=== PATIENT | female | born 1970 | race African-American/Black ===

== ENCOUNTER 2018-08-09 16:16 | Inpatient (IN) | payer OTHER, SELFPAY ==
--- NOTE | 2018-08-09 16:45 | RAD ---
Exam: Chest one view HISTORY:Chest pain Comparison: 12/05/2016 FINDINGS: Lungs: No masses or consolidation. Cardiac silhouette:Persistent enlargement Pulmonary vessels: Prominent pulmonary vasculature, similar appearing Pleural Spaces: Clear Pneumothorax: None Osseous abnormalities: None of acuity. IMPRESSION: Enlarged cardiac silhouette and pulmonary vasculature, redemonstrated. Correlate clinical ly
[2018-08-09 16:54] LABS: #Eosinphils 0.1 thou/uL (0.0-0.7); #Monocytes 0.6 thou/uL (0.11-0.59); #Neutrophils 8.7 thou/uL (1.40-6.50); %Basophils 0.4 % (0.0-1.0); %Eosinophils 0.5 % (0.0-10.0); %Lymphocytes 24.3 % (21.0-51.0); %Monocytes 5.1 % (0.0-10.0); %Neutrophils 69.7 % (42.0-75.0); Hemoglobin 13.5 g/dL (12.0-16.0); Mean Corpuscular Hemoglobin 24.6 pg (27.0-31.0); Mean Corpuscular Volume 84.8 fL (78.0-98.0); Mean Platelet Volume 7.5 fL (7.4-10.4); Platelet Count 431 thou/uL (130-400); Red Blood Cell (RBC) Count 5.46 mill/uL (4.20-5.40); White Blood Cell (WBC) Count 12.5 thou/uL (4.8-10.8)
[2018-08-09 17:21] LABS: ALT (SGPT) 35 U/L (8-55); AST (SGOT) 27 U/L (5-34); Albumin 3.6 g/dL (3.5-5.0); Alkaline Phosphatase 107 U/L (40-150); Anion Gap 15 mmol/L (10-20); BUN (Urea Nitrogen) 8 mg/dL (7.0-18.7); Bilirubin, Total 0.4 mg/dL (0.2-1.2); CK (CPK) 106 U/L (29-168); Calc. Creatinine Clearance 0 mL/min (70-130); Calcium 9.3 mg/dL (7.8-10.44); Carbon Dioxide 26 mmol/L (22-29); Chloride 102 mmol/L (98-107); Estimated GFR-MDRD 72; Globulin 3.8 g/dL (2.4-3.5); Glucose 128 mg/dL (70-105); Potassium 3.7 mmol/L (3.5-5.1); Protein, Total 7.4 g/dL (6.0-8.3); Sodium 139 mmol/L (136-145)
[2018-08-09 17:47] LABS: CKMB 1.1 ng/mL (0-6.6)
[2018-08-09] MEDS ORDERED: Furosemide 40 MG/4 ML VIAL ONE (19:21)
[2018-08-09] MEDS ORDERED: Enoxaparin Sodium 100 MG/ML SYRINGE ONE (19:21)
[2018-08-09] MEDS ORDERED: Enoxaparin Sodium 80 MG/0.8 ML SYRINGE ONE (19:21)
[2018-08-09 20:13] LABS: Troponin I 0.064 ng/mL (< 0.028)
[2018-08-09] MEDS: Furosemide 40 MG/4 ML VIAL SLOW IVP SCH (21:48)
[2018-08-09 22:01] VITALS: BMI 64.2
[2018-08-09] MEDS ORDERED: Dextrose 5% in Water 1,000 ML IV PRN (22:29)
[2018-08-09] MEDS ORDERED: Dextrose 50% Abboject 50 ML SYRINGE IVP PRN (22:29)
[2018-08-09] MEDS: HumaLOG 300 UNITS/3 ML VIAL SC PRN (23:26)
--- NOTE | 2018-08-10 02:05 | HP ---
CHIEF COMPLAINT: Shortness of breath. HISTORY OF PRESENT ILLNESS: This patient is a 47-year-old female with a history of severe cardiomyopathy with an ejection fraction of 10% to 15%. The patient was last admitted anywhere which was here in 2015. At that time, her EF was 10% to 15%. She had some evidence of decompensated failure and respiratory failure. The patient was discharged and reports that she had been following up at [facility], but recently changed to Dr. Jiménez in April. She was trying to get fully worked up again at that time, but her Medicaid was discontinued at the end of April, so she has not had significant followup. She is also struggling to maintain adequate amounts of her medication. She has been spacing her medications out in order to try to make them last longer. She has only been using her Lasix a couple of times a week. She presented today with worsening shortness of breath, orthopnea, peripheral edema, and pressure in her chest has been intermittent since April, but became worse over the last several days. She denies any sharp pain. REVIEW OF SYSTEMS: She reports that she is having some problems with her bones and when asked to be more specific, she says they feel like they are "dry" and/or popping a lot. Other than that all systems were reviewed, pertinent positives and negatives noted in the history of present illness. PAST MEDICAL HISTORY: Significant for the above mentioned cardiomyopathy with EF of 10% to 15% She has been reluctant to consider LifeVest and has not had a defibrillator accomplished yet. She has hypertension, diabetes, morbid obesity, history of PCP drug abuse and tobacco use, dyslipidemia, pulmonary embolus, and DVT. PAST SURGICAL HISTORY: History of bilateral vocal cord lesion biopsy, benign laparoscopic cholecystectomy, I and D of abdominal wall abscess. FAMILY HISTORY: Myocardial infarction both parents. SOCIAL HISTORY: The patient quit smoking about 5 years ago. She smoked a pack a day prior to that time. Denies alcohol or drugs. She is full code. Her sister, Carlie, would be her surrogate decision maker should that become necessary. ALLERGIES: IBUPROFEN AND MORPHINE. CURRENT MEDICATIONS: 1. Coreg 25 mg b.i.d. 2. Lasix 40 mg b.i.d. 3. Pravastatin 20 mg daily. 4. Aldactone 25 mg b.i.d. 5. Nexium 40 mg daily. 6. Lisinopril 40 mg daily. 7. Metformin 500 mg b.i.d. 8. NovoLog insulin b.i.d. PHYSICAL EXAMINATION: VITAL SIGNS: Temperature 98.5, pulse 98, respirations 16, O2 saturation 94% on 2 L nasal cannula, BP 146/68. GENERAL APPEARANCE: Morbidly obese, age-appropriate female, in no distress. She is awake, alert, sitting up in chair. HEENT: PERRL. No OP lesions. NECK: Supple and symmetric. Cannot determine if there is JVD due to her habitus. HEART: Regular, but again difficult to auscultate because of her morbid obesity. LUNGS: Clear with possibly some very minimal basilar rales, but generally fair air exchange. ABDOMEN: Obese, soft, nontender, and nondistended. Positive bowel sounds. No masses. No organomegaly. EXTREMITIES: Have 2 to 3+ pitting edema up to the level of the knee bilaterally. Pulses are diminished because of the edema. NEUROLOGIC: She is intact. Moves all extremities spontaneously. Has no focal deficits. PSYCH: Normal affect and behavior. LABORATORY DATA: White count 12.5, hemoglobin 13.5, platelets 431. Sodium 139, potassium 3.7, chloride 102, CO2 is 25, BUN 8, creatinine 0.99, glucose 128, calcium 9.3, AST is 27, ALT is 35, alkaline phosphatase 107. Troponin 0.047, subsequent 0.064. BNP 588.5. Chest x-ray shows cardiomegaly with prominent pulmonary vasculature. IMPRESSION AND PLAN: 1. Decompensated congestive heart failure. The patient with a severe cardiomyopathy. She has not been able to take her medications routinely because of lack of resources. She will receive IV Lasix and continue with her Aldactone medications. 2. Cardiomyopathy. Continue with the beta laly, BRITTANY inhibitor, and diuretics. 3. Elevated troponin likely secondary to the decompensated heart failure, representing a type 2 [id number] myocardial infarction secondary to demand ischemia. 4. Acute hypoxic respiratory failure secondary to decompensated heart failure. Oxygen as needed until she is adequately diuresed. The patient has a history of pulmonary emboli. She has received a dose of Lovenox at a therapeutic level. She will have a V/Q scan in the morning as she is unable to lie flat for a CT scan. 5. Diabetes mellitus. Continue with the metformin, Accu-Cheks and sliding scale. 6. Hyperlipidemia. Continue with her usual pravastatin. 7. Disposition. Consider Cardiology consult, although at this point, the patient appears to have fairly straightforward decompensation of her heart failure can be adequately addressed. She will at some point need the defibrillator placement. We will also ask Case Management to see her to see if there is other resources we can use to help her maintain her medications. Job ID: [id number]
[2018-08-10] MEDS: Furosemide 40 MG/4 ML VIAL SLOW IVP SCH ×2 (06:14→14:24)
[2018-08-10] MEDS ORDERED: metFORMIN 500 MG TAB PO SCH (08:00)
[2018-08-10] MEDS: Lisinopril 20 MG TAB PO SCH (08:03)
[2018-08-10] MEDS: Spironolactone 25 MG TAB PO SCH ×2 (08:04→16:03)
[2018-08-10] MEDS: Carvedilol 25 MG TAB PO SCH ×2 (08:04→16:03)
[2018-08-10] MEDS ORDERED: ISOVUE-370 76%-LOCM 1 ML ONE (10:27)
--- NOTE | 2018-08-10 12:32 | CON ---
DATE OF CONSULTATION: HISTORY OF PRESENT ILLNESS: The patient is a 47-year-old woman, who presents for evaluation of dyspnea. The patient has a long history of cardiomyopathy. She was diagnosed with congestive heart failure in January 2018. She was seen by Dr. Cabezas. The patient also suffered a pulmonary embolism. The patient was placed on medical therapy. She has a previous history of noncompliance. The patient was seen recently in the office for cardiac evaluation when an echocardiogram revealed a severe decrease in left ventricular systolic function with estimated ejection fraction of 20% to 25%. The patient presents with increasing dyspnea. She reports dyspnea at rest. She states she has been out of her Lasix for several weeks. The patient reports having substernal chest discomfort. This occurs primarily when she feels dyspneic. The discomfort was continuous throughout the day. She denies having any present chest discomfort. PAST MEDICAL HISTORY: 1. Cardiomyopathy. 2. Congestive heart failure. 3. History of pulmonary embolism. 4. Diabetes mellitus. 5. Morbid obesity. PAST SURGICAL HISTORY: Cholecystectomy. SOCIAL HISTORY: The patient continues to smoke. FAMILY HISTORY: No strong family history of heart disease. ALLERGIES: MORPHINE AND IBUPROFEN. PHYSICAL EXAMINATION: GENERAL: Morbidly obese woman in mild distress. VITAL SIGNS: Blood pressure 153/76. NECK: Full. LUNGS: Few crackles in both bases. HEART: Regular rate and rhythm. Normal S1, S2. ABDOMEN: Distended. EXTREMITIES: Showed severe bilateral edema. VASCULAR: Radial pulses 2+. LABORATORY RESULTS: Her white blood cell count was 12.5, hemoglobin 13.5, hematocrit 46.3, and platelets 431. Her sodium was 139, potassium 3.7, chloride 102, bicarb 26, BUN 8, creatinine is 0.99, glucose 128, troponin 0.08. EKG Normal sinus rhythm with left bundle branch block. IMPRESSION: 1. Congestive heart failure. 2. Cardiomyopathy. 3. Diabetes mellitus. 4. Hypertension. 5. Dyslipidemia. 6. Tobacco abuse. The patient presents with congestive heart failure. She has been out of her medications. The patient has a history of pulmonary embolism. She will undergo a CT scan to rule out pulmonary embolus. Further recommendations will follow. Job ID: [id number] MTDD
--- NOTE | 2018-08-10 12:51 | CT ---
CTA CHEST WITH CONTRAST: INDICATIONS: Shortness of breath. Question pulmonary embolus. CORRELATION: Previous CTA chest from 02/10/2016. This exam revealed prominent bilateral pulmonary emboli with a l arge amount of clot in the right main pulmonary artery and into the right interlobar pulmonary artery . TECHNIQUE: Multiple axial tomograms obtained through the chest with pulmonary angio protocol with multiplanar re constructions and 3D post processing. FINDINGS: On today's exam, there is an area of filling defect in the right interlobar pulmonary artery, at the site of the previous clot burden. This linear defect appears to represent thrombus extending from th e wall of this vessel and may represent chronic residual thrombus from the prior episode of thrombosi s. No other evidence of filling defect or pulmonary embolus identified. Review of the lung lamas show patchy atelectasis and/or infiltrate in the left lung base. There is cardiomegaly. Images through the upper abdomen show evidence of a right adrenal nodule, amy suring 2.3 cm. This was present on the prior exam. The left adrenal shows hyperplasia and is also s table in appearance. IMPRESSION: 1. Linear filling defect in the right inner lobar pulmonary artery. While I cannot exclude acute pu lmonary embolus, the linear configuration at the site of the previous large embolus may represent chr onic thrombus at this location. 2. Patchy atelectasis and/or infiltrate in the left lung base. 3. Right adrenal nodule appears stable. POS: [facility]
--- NOTE | 2018-08-10 13:31 | PDOC.PN ---
- Subjective Encounter Start Date: 08/10/18 Encounter Start Time: 13:00 CC: SOB HPI: 47 female with nonischemic cardiomyopathy, DM, HTN, HLD, morbid obesity admitted with exacerbation of CHF Subjective; patient seen and evaluated at bedside. Breathing better. no chest pain. Good diuresis. Per nurse, no other acute events overnight. ROS: all systems are reviewed and negative except for the ones mentioned above. - Objective Resuscitation Status - Order Detail: 08/09/18 23:07 Resuscitation Status Routine Resuscitation Status: FULL: Full Resuscitation MAR Reviewed: Yes Vital Signs & Weight: Vital Signs (12 hours) Temp Pulse Resp BP Pulse Ox 08/10/18 11:57 97.9 F 78 18 130/71 96 08/10/18 07:53 97.5 F L 80 20 153/76 H 96 08/10/18 04:00 98 F 89 16 150/72 H 93 L Weight Weight 374 lb I&O: 08/09/18 08/10/18 08/11/18 06:59 06:59 06:59 Intake Total 350 Output Total 4500 Balance -4150 Result Diagrams: 08/09/18 16:44 08/09/18 16:44 Additional Labs: Accuchecks 08/10/18 08/10/18 08/09/18 10:33 05:28 21:57 POC Glucose 178 H 113 H 229 H Radiology Reviewed by me: Yes EKG Reviewed by me: Yes Phys Exam - Physical Examination Constitutional: NAD HEENT: PERRLA, moist MMs, oral pharynx no lesions Neck: no nodes, no JVD, supple, full ROM Respiratory: no wheezing, no rhonchi distant rales Cardiovascular: RRR, no significant murmur, no rub Gastrointestinal: soft, non-tender, no distention, positive bowel sounds Musculoskeletal: pulses present, edema present Edema of the lower extremities Neurological: non-focal, normal sensation, moves all 4 limbs Psychiatric: normal affect, A&O x 3 Skin: no rash, normal turgor, cap refill <2 seconds Dx/Plan (1) Acute on chronic systolic and diastolic heart failure, NYHA class 3 Code(s): I50.43 - ACUTE ON CHRONIC COMBINED SYSTOLIC AND DIASTOLIC HRT FAIL Status: Acute Plan: Continue CHF protocol. Cardiology follows. Improving (2) Nonischemic cardiomyopathy Code(s): I42.8 - OTHER CARDIOMYOPATHIES Status: Acute Plan: with decreased EF. Patient offered evaluation for AICD but refuses for now (3) Morbid obesity with BMI of 50.0-59.9, adult Code(s): E66.01 - MORBID (SEVERE) OBESITY DUE TO EXCESS CALORIES; Z68.43 - BODY MASS INDEX (BMI) 50-59.9, ADULT Status: Acute Plan: lifestyle modification recs. (4) Elevated troponin Code(s): R74.8 - ABNORMAL LEVELS OF OTHER SERUM ENZYMES Status: Acute Plan: circulating troponin. Likely secondary to CHF exacerbation. (5) Acute respiratory failure with hypoxemia Code(s): J96.01 - ACUTE RESPIRATORY FAILURE WITH HYPOXIA Status: Resolved (6) Pulmonary embolism Code(s): I26.99 - OTHER PULMONARY EMBOLISM WITHOUT ACUTE COR PULMONALE Status : Chronic Qualifiers: Pulmonary embolism type: unspecified Chronicity: chronic Acute cor pulmonale presence: without acute cor pulmonale Qualified Code(s): I27.82 - Chronic pulmonary embolism Plan: Eliquis (7) Dyslipidemia Code(s): E78.5 - HYPERLIPIDEMIA, UNSPECIFIED Status: Chronic (8) Diabetes Code(s): E11.9 - TYPE 2 DIABETES MELLITUS WITHOUT COMPLICATIONS Status: Chronic Qualifiers: Diabetes mellitus type: type 2 Diabetes mellitus penitentiary insulin use: without emt intermediate use Diabetes mellitus complication status: with unspecified complications Qualified Code(s): E11.8 - Type 2 diabetes mellitus with unspecified complications (9) Essential hypertension Code(s): I10 - ESSENTIAL (PRIMARY) HYPERTENSION Status: Chronic - Plan cont current plan of care CODE; FULL CORE; ELIQUIS DISP; TELEMETRY PROG; GUARDED CLINICAL STATUS; GUARDED EXPECTED DISCHARGE; TBD TOTAL TIME SPENT; 32 MINUTES DATE OF SERVICE; 08/10/2018
[2018-08-10] MEDS: HumaLOG 300 UNITS/3 ML VIAL SC PRN (14:24)
[2018-08-10] MEDS: Nicotine 21 MG PATCH TOP PRN (20:09)
[2018-08-10] MEDS: Pravastatin Sodium 20 MG TAB PO SCH (20:09)
[2018-08-10] MEDS: Docusate 100 MG CAP PO SCH (20:09)
[2018-08-10] MEDS ORDERED: Apixaban 5 MG TAB PO SCH (21:00)
[2018-08-10 22:17] LABS: Hemoglobin 12.8 g/dL (12.0-16.0); Platelet Count 402 thou/uL (130-400)
[2018-08-10 22:34] LABS: Calc. Creatinine Clearance 233 mL/min (70-130); Estimated GFR-MDRD Greater than 90
[2018-08-11] MEDS: Furosemide 40 MG/4 ML VIAL SLOW IVP SCH ×2 (05:34→13:20)
[2018-08-11 06:13] LABS: Hemoglobin 12.5 g/dL (12.0-16.0); Hemoglobin 12.6 g/dL (12.0-16.0); Mean Corpuscular HGB CONC 29.6 g/dL (32.0-36.0); Mean Corpuscular Hemoglobin 24.8 pg (27.0-31.0); Mean Platelet Volume 7.8 fL (7.4-10.4); Platelet Count 382 thou/uL (130-400); Platelet Count 386 thou/uL (130-400); RBC Distribution Width 14.7 % (11.5-14.5); Red Blood Cell (RBC) Count 5.06 mill/uL (4.20-5.40); White Blood Cell (WBC) Count 10.6 thou/uL (4.8-10.8)
[2018-08-11 06:26] LABS: Anion Gap 13 mmol/L (10-20); BUN (Urea Nitrogen) 11 mg/dL (7.0-18.7); Calc. Creatinine Clearance 255 mL/min (70-130); Calcium 9.2 mg/dL (7.8-10.44); Carbon Dioxide 30 mmol/L (22-29); Chloride 99 mmol/L (98-107); Estimated GFR-MDRD Greater than 90; Glucose 147 mg/dL (70-105); Magnesium 1.7 mg/dL (1.6-2.6); Potassium 3.5 mmol/L (3.5-5.1); Sodium 138 mmol/L (136-145)
[2018-08-11] MEDS: Spironolactone 25 MG TAB PO SCH ×2 (08:03→16:20)
[2018-08-11] MEDS: Carvedilol 25 MG TAB PO SCH ×2 (08:03→16:21)
[2018-08-11] MEDS: Fish Oil 1,000 MG CAP PO SCH (08:03)
[2018-08-11] MEDS: Lisinopril 20 MG TAB PO SCH (08:04)
[2018-08-11] MEDS: Potassium Chloride 20 MEQ TAB PO SCH (08:04)
[2018-08-11] MEDS: Docusate 100 MG CAP PO SCH ×2 (08:04→19:44)
[2018-08-11] MEDS ORDERED: [UNRECOGNIZED DRUG - OTHER] PO SCH (09:00)
[2018-08-11] MEDS ORDERED: Non-Formulary Item 1 EACH (Potassium Chloride [Potassium Chloride] 20 MEQ) PO SCH (09:00)
[2018-08-11] MEDS ORDERED: FISH OIL PO SCH (09:00)
[2018-08-11] MEDS ORDERED: OMEGA PO SCH (09:00)
[2018-08-11] MEDS ORDERED: EPA PO SCH (09:00)
[2018-08-11] MEDS ORDERED: DHA PO SCH (09:00)
[2018-08-11] MEDS: Aspirin 325 MG TAB PO SCH (09:23)
--- NOTE | 2018-08-11 12:41 | PDOC.PN ---
- Subjective Encounter Start Date: 08/11/18 Encounter Start Time: 09:00 CC; SOB SUBJECTIVE; PATIENT SEEN AND EVALUATED. NO ACUTE COMPLAINTS. NO ACUTE EVENTS OVERNIGHT. [facility] HELD DUE TO WILL MCKINNEY; ALL SYSTEMS ARE REVIEWED AND NEGATIVE EXCEPT FOR THE ONES MENTIONED ABOVE - Objective Resuscitation Status - Order Detail: 08/09/18 23:07 Resuscitation Status Routine Resuscitation Status: FULL: Full Resuscitation MAR Reviewed: Yes Vital Signs & Weight: Vital Signs (12 hours) Temp Pulse Resp BP Pulse Ox 08/11/18 12:27 97.2 F L 74 18 118/78 96 08/11/18 07:58 98.4 F 74 20 138/67 94 L 08/11/18 04:00 98.0 F 73 19 131/60 94 L Weight Weight 357 lb 3.2 oz I&O: 08/10/18 08/11/18 08/12/18 06:59 06:59 06:59 Intake Total 350 1680 Output Total 4500 6800 Balance -4150 -5120 Result Diagrams: 08/11/18 05:32 08/11/18 05:32 Additional Labs: Accuchecks 08/11/18 08/11/18 08/10/18 11:10 05:41 20:09 POC Glucose 215 H 156 H 173 H 08/10/18 17:05 POC Glucose 134 H Radiology Reviewed by me: Yes EKG Reviewed by me: Yes Phys Exam - Physical Examination HEENT: PERRLA, moist MMs, sclera anicteric, oral pharynx no lesions Neck: no nodes, no JVD, supple, full ROM Respiratory: no wheezing, no rales, no rhonchi, clear to auscultation bilateral Cardiovascular: RRR, no significant murmur, no rub Gastrointestinal: soft, non-tender, no distention, positive bowel sounds Musculoskeletal: pulses present, edema present Neurological: non-focal, normal sensation, moves all 4 limbs Psychiatric: normal affect, A&O x 3 Skin: no rash, normal turgor, cap refill <2 seconds Dx/Plan (1) Acute on chronic systolic and diastolic heart failure, NYHA class 3 Code(s): I50.43 - ACUTE ON CHRONIC COMBINED SYSTOLIC AND DIASTOLIC HRT FAIL Status: Acute Plan: IMPROVING. CONTINUE CHF PROTOCOL. (2) Nonischemic cardiomyopathy Code(s): I42.8 - OTHER CARDIOMYOPATHIES Status: Chronic Plan: LHC PENDING. HELD DUE TO ELIQUIS. CARDIOLOGY FOLLOWS (3) Morbid obesity with BMI of 50.0-59.9, adult Code(s): E66.01 - MORBID (SEVERE) OBESITY DUE TO EXCESS CALORIES; Z68.43 - BODY MASS INDEX (BMI) 50-59.9, ADULT Status: Chronic Plan: WEIGHT LOSS PLAN RECOMMENDED (4) Elevated troponin Code(s): R74.8 - ABNORMAL LEVELS OF OTHER SERUM ENZYMES Status: Acute Plan: SEE ABOVE (5) Acute respiratory failure with hypoxemia Code(s): J96.01 - ACUTE RESPIRATORY FAILURE WITH HYPOXIA Status: Resolved (6) Pulmonary embolism Code(s): I26.99 - OTHER PULMONARY EMBOLISM WITHOUT ACUTE COR PULMONALE Status : Chronic Qualifiers: Pulmonary embolism type: unspecified Chronicity: chronic Acute cor pulmonale presence: without acute cor pulmonale Qualified Code(s): I27.82 - Chronic pulmonary embolism Plan: HOLDING ELIQUIS (7) Dyslipidemia Code(s): E78.5 - HYPERLIPIDEMIA, UNSPECIFIED Status: Chronic (8) Diabetes Code(s): E11.9 - TYPE 2 DIABETES MELLITUS WITHOUT COMPLICATIONS Status: Chronic Qualifiers: Diabetes mellitus type: type 2 Diabetes mellitus care home insulin use: without yard stocker use Diabetes mellitus complication status: with unspecified complications Qualified Code(s): E11.8 - Type 2 diabetes mellitus with unspecified complications (9) Essential hypertension Code(s): I10 - ESSENTIAL (PRIMARY) HYPERTENSION Status: Chronic (10) Tobacco dependence Code(s): F17.200 - NICOTINE DEPENDENCE, UNSPECIFIED, UNCOMPLICATED Status: Chronic Plan: NICOTINE PATCH. RECOMMENDED TO QUIT - Plan cont current plan of care CONTINUE CHF PROTOCOL. HOLD [facility] DUE TO [facility] NEEDED. CODE; FULL CORE; SCD DISP; TELE PROG; GUARDED CLINICAL STATUS; GUARDED EXPECTED DISCHARGE; TBD TOTAL TIME SPENT; 25 MINUTES
[2018-08-11] MEDS: HumaLOG 300 UNITS/3 ML VIAL SC PRN ×2 (13:17→17:49)
[2018-08-11] MEDS: Nicotine 21 MG PATCH TOP PRN (17:13)
[2018-08-11] MEDS: Pravastatin Sodium 20 MG TAB PO SCH (19:44)
[2018-08-12] MEDS ORDERED: Polyethylene Glycol 3350 17 GM Packet PO SCH (05:00)
[2018-08-12] MEDS: traMADol HCl 50 MG TAB PO PRN ×2 (05:03→17:50)
[2018-08-12] MEDS: Furosemide 40 MG/4 ML VIAL SLOW IVP SCH ×2 (05:06→13:46)
[2018-08-12 06:56] LABS: BUN (Urea Nitrogen) 12 mg/dL (7.0-18.7); Calc. Creatinine Clearance 234 mL/min (70-130); Calcium 9.2 mg/dL (7.8-10.44); Estimated GFR-MDRD Greater than 90; Glucose 142 mg/dL (70-105); Magnesium 1.9 mg/dL (1.6-2.6)
[2018-08-12 07:05] LABS: Anion Gap 17 mmol/L (10-20); Carbon Dioxide 31 mmol/L (22-29); Chloride 96 mmol/L (98-107); Potassium 3.6 mmol/L (3.5-5.1); Sodium 140 mmol/L (136-145)
[2018-08-12] MEDS ORDERED: Communication Order-Pharmacy FS SCH (08:30)
[2018-08-12] MEDS: Fish Oil 1,000 MG CAP PO SCH (09:00)
[2018-08-12] MEDS: Aspirin 325 MG TAB PO SCH (09:00)
[2018-08-12] MEDS: Docusate 100 MG CAP PO SCH ×2 (09:00→20:44)
[2018-08-12] MEDS: Lisinopril 20 MG TAB PO SCH (09:00)
[2018-08-12] MEDS: Carvedilol 25 MG TAB PO SCH ×2 (09:00→17:50)
[2018-08-12] MEDS: Potassium Chloride 20 MEQ TAB PO SCH (09:00)
[2018-08-12] MEDS: Spironolactone 25 MG TAB PO SCH ×2 (09:01→17:51)
--- NOTE | 2018-08-12 10:04 | PDOC.PN ---
- Subjective Encounter Start Date: 08/12/18 Encounter Start Time: 08:00 CC; SOB. SUBJECTIVE; PATIENT SEEN AND EVAL. BREATHING BETTER. NO COMPLAINTS. PER NURSE, NO ACUTE EVENTS OVERNIGHT. ROS; ALL SYSTEMS ARE REVIEWED AND NEGATIVE EXCEPT FOR THE ONES MENTIONED ABOVE - Objective Resuscitation Status - Order Detail: 08/09/18 23:07 Resuscitation Status Routine Resuscitation Status: FULL: Full Resuscitation MAR Reviewed: Yes Vital Signs & Weight: Vital Signs (12 hours) Temp Pulse Resp BP Pulse Ox 08/12/18 05:11 95 08/12/18 04:00 97.6 F 83 20 136/68 90 L 08/11/18 23:30 98.3 F 78 20 105/54 L 94 L Weight Weight 360 lb 12.8 oz I&O: 08/11/18 08/12/18 08/13/18 06:59 06:59 06:59 Intake Total 1680 860 Output Total 6800 2400 Balance -5120 -1540 Result Diagrams: 08/11/18 05:32 08/12/18 06:10 Additional Labs: Accuchecks 08/12/18 08/11/18 08/11/18 05:38 19:50 17:46 POC Glucose 161 H 197 H 163 H 08/11/18 11:10 POC Glucose 215 H Radiology Reviewed by me: Yes EKG Reviewed by me: Yes Phys Exam - Physical Examination HEENT: PERRLA, moist MMs, sclera anicteric, oral pharynx no lesions Neck: no nodes, no JVD, supple Respiratory: no wheezing, no rales, no rhonchi, clear to auscultation bilateral Cardiovascular: RRR, no significant murmur, no rub Gastrointestinal: soft, non-tender, no distention Musculoskeletal: no edema, pulses present Neurological: non-focal, normal sensation, moves all 4 limbs Psychiatric: normal affect, A&O x 3 Skin: no rash, normal turgor, cap refill <2 seconds Dx/Plan (1) Acute on chronic systolic and diastolic heart failure, NYHA class 3 Code(s): I50.43 - ACUTE ON CHRONIC COMBINED SYSTOLIC AND DIASTOLIC HRT FAIL Status: Acute Plan: RESOLVED (2) Nonischemic cardiomyopathy Code(s): I42.8 - OTHER CARDIOMYOPATHIES Status: Chronic (3) Morbid obesity with BMI of 50.0-59.9, adult Code(s): E66.01 - MORBID (SEVERE) OBESITY DUE TO EXCESS CALORIES; Z68.43 - BODY MASS INDEX (BMI) 50-59.9, ADULT Status: Chronic (4) Elevated troponin Code(s): R74.8 - ABNORMAL LEVELS OF OTHER SERUM ENZYMES Status: Acute Plan: AWAITING [facility]QU[facility] TO [place] [facility] FOR [facility]. CARDIOLOGY FOLLOWS (5) Acute respiratory failure with hypoxemia Code(s): J96.01 - ACUTE RESPIRATORY FAILURE WITH HYPOXIA Status: Resolved (6) Pulmonary embolism Code(s): I26.99 - OTHER PULMONARY EMBOLISM WITHOUT ACUTE COR PULMONALE Status : Chronic Qualifiers: Pulmonary embolism type: unspecified Chronicity: chronic Acute cor pulmonale presence: without acute cor pulmonale Qualified Code(s): I27.82 - Chronic pulmonary embolism (7) Dyslipidemia Code(s): E78.5 - HYPERLIPIDEMIA, UNSPECIFIED Status: Chronic (8) Diabetes Code(s): E11.9 - TYPE 2 DIABETES MELLITUS WITHOUT COMPLICATIONS Status: Chronic Qualifiers: Diabetes mellitus type: type 2 Diabetes mellitus geospatial information technologist insulin use: without geospatial information technologist use Diabetes mellitus complication status: with unspecified complications Qualified Code(s): E11.8 - Type 2 diabetes mellitus with unspecified complications (9) Essential hypertension Code(s): I10 - ESSENTIAL (PRIMARY) HYPERTENSION Status: Chronic (10) Tobacco dependence Code(s): F17.200 - NICOTINE DEPENDENCE, UNSPECIFIED, UNCOMPLICATED Status: Chronic - Plan cont current plan of care ACUTE ON CHRONIC CHF RESOLVED. AWAITING ELIQUIS TO [place] OFF FOR HEART CATH PER CARIOLOGIST'S RECS. CODE; FULL CORE; SCD DISP; TELEMETRY PROG; GUARDED CLINICAL STATUS; GUARDED EXPECTED DISCHARGE; TBD TOTAL TIME SPENT; 25 MINUTES DATE OF SERVICE; 08/12/2018
[2018-08-12] MEDS: HumaLOG 300 UNITS/3 ML VIAL SC PRN (13:57)
[2018-08-12] MEDS: Pravastatin Sodium 20 MG TAB PO SCH (20:44)
[2018-08-12] MEDS: Nicotine 21 MG PATCH TOP PRN (20:44)
[2018-08-13] MEDS: Furosemide 40 MG/4 ML VIAL SLOW IVP SCH ×2 (05:43→14:36)
[2018-08-13 05:44] LABS: Anion Gap 13 mmol/L (10-20); BUN (Urea Nitrogen) 14 mg/dL (7.0-18.7); Calc. Creatinine Clearance 240 mL/min (70-130); Calcium 9.3 mg/dL (7.8-10.44); Carbon Dioxide 33 mmol/L (22-29); Chloride 95 mmol/L (98-107); Estimated GFR-MDRD Greater than 90; Glucose 146 mg/dL (70-105); Magnesium 1.8 mg/dL (1.6-2.6); Potassium 3.8 mmol/L (3.5-5.1); Sodium 137 mmol/L (136-145)
[2018-08-13] MEDS ORDERED: Iopamidol 370 76% 100 ML VIAL ONE (08:39)
[2018-08-13] MEDS ORDERED: Verapamil 5 MG/2 ML VIAL ONE (09:07)
[2018-08-13] MEDS ORDERED: Heparin 10,000 UNITS/1 ML VIAL ONE (09:07)
[2018-08-13] MEDS ORDERED: Nitroglycerin 100MG/250ML BOT 250 ML ONE (09:07)
[2018-08-13] MEDS ORDERED: Fentanyl 100 MCG/2 ML VIAL ONE (09:51)
[2018-08-13] MEDS ORDERED: Midazolam HCl 2 mg/2 ml Vial ONE (09:51)
[2018-08-13] MEDS ORDERED: Sodium Chloride 0.9% 200 ML IV PRN (10:17)
[2018-08-13] MEDS: Potassium Chloride 20 MEQ TAB PO SCH (12:53)
[2018-08-13] MEDS: Lisinopril 20 MG TAB PO SCH (12:54)
[2018-08-13] MEDS: Spironolactone 25 MG TAB PO SCH ×2 (12:54→18:10)
[2018-08-13] MEDS: Docusate 100 MG CAP PO SCH ×2 (12:54→20:49)
[2018-08-13] MEDS: Fish Oil 1,000 MG CAP PO SCH (12:54)
[2018-08-13] MEDS: Aspirin 325 MG TAB PO SCH (12:55)
[2018-08-13] MEDS: Carvedilol 25 MG TAB PO SCH ×2 (12:55→18:10)
--- NOTE | 2018-08-13 14:05 | PRG ---
DATE OF SERVICE: 08/13/2018 SUBJECTIVE: The patient is seen and examined at the bedside. She just returned from her cardiac catheterization procedure done by Dr. Jiménez, which confirmed a low LVEF with some blockage in RCA, but the final report is still pending. OBJECTIVE: VITAL SIGNS: Blood pressure is 117/73, pulse is 73, temperature is 97.8, respiratory rate is 20, O2 saturation is 95%. HEENT: Her head is atraumatic and normocephalic. Eyes are PERRLA. Sclerae are nonicteric. Oral mucosa is moist. NECK: Supple. LUNGS: Clear. HEART: S1, S2 normal. No S3. No S4. ABDOMEN: Obese, soft, nontender. Bowel sounds are present. No organomegaly. EXTREMITIES: 1+ peripheral edema, similar bilateral in the lower extremities. Her right wrist entry point of her cardiac cath looks good. NEUROLOGICAL: She is alert and oriented x4. There is no any motor or sensory deficits present. Cranial nerves are intact. LABORATORY DATA: Labs showed sodium of 137, potassium 3.8, chloride 95, CO2 of 33, BUN 14, creatinine 0.74, glycemia is ranging from 143 to 210, calcium 9.3, magnesium 1.8. IMPRESSION: 1. Acute on chronic systolic and diastolic heart failure. [place] Heart Association class 3. 2. Nonischemic cardiomyopathy, chronic. 3. Elevated troponin. 4. Acute respiratory failure with hypoxemia, resolved. 5. Pulmonary embolism, chronic. 6. Dyslipidemia. 7. Diabetes mellitus. 8. Essential hypertension. 9. Tobacco dependence. 10. Morbid obesity. PLAN: The patient has a very severe financial problem. She is not able to afford her medications. The case was discussed with disability case manager. We will keep her in the hospital until Thursday when we can arrange more help for this lady. For now, we will continue current regimen with carvedilol, furosemide, lisinopril, nicotine patch, pantoprazole, pravastatin, potassium. The patient will need LifeVest, and Cardiology will restart her on her Eliquis as soon as it is appropriate. Job ID: [id number]
[2018-08-13] MEDS: Nicotine 21 MG PATCH TOP PRN (18:12)
[2018-08-13] MEDS: HumaLOG 300 UNITS/3 ML VIAL SC PRN ×2 (19:21→20:47)
[2018-08-13] MEDS: Pravastatin Sodium 20 MG TAB PO SCH (20:49)
[2018-08-13] MEDS: traMADol HCl 50 MG TAB PO PRN (23:48)
[2018-08-14 04:58] LABS: Hemoglobin 12.6 g/dL (12.0-16.0); Platelet Count 355 thou/uL (130-400)
[2018-08-14 05:11] LABS: Calc. Creatinine Clearance 241 mL/min (70-130); Estimated GFR-MDRD Greater than 90
[2018-08-14] MEDS: Furosemide 40 MG/4 ML VIAL SLOW IVP SCH (05:48)
[2018-08-14] MEDS ORDERED: Apixaban 5 MG TAB PO SCH (09:00)
[2018-08-14] MEDS: Polyethylene Glycol 3350 17 GM Packet PO SCH (09:07)
[2018-08-14] MEDS: Carvedilol 25 MG TAB PO SCH ×2 (09:08→16:51)
[2018-08-14] MEDS: Apixaban 5 MG TAB PO SCH ×2 (09:08→20:20)
[2018-08-14] MEDS: Docusate 100 MG CAP PO SCH ×2 (09:08→20:20)
[2018-08-14] MEDS: Spironolactone 25 MG TAB PO SCH ×2 (09:08→16:51)
[2018-08-14] MEDS: Furosemide 40 MG TAB PO SCH (09:08)
[2018-08-14] MEDS: Potassium Chloride 20 MEQ TAB PO SCH (09:08)
[2018-08-14] MEDS: Fish Oil 1,000 MG CAP PO SCH (09:08)
[2018-08-14] MEDS: Lisinopril 20 MG TAB PO SCH (09:09)
[2018-08-14] MEDS: HumaLOG 300 UNITS/3 ML VIAL SC PRN ×3 (12:21→20:25)
[2018-08-14] MEDS: traMADol HCl 50 MG TAB PO PRN (16:50)
[2018-08-14] MEDS: Pravastatin Sodium 20 MG TAB PO SCH (20:20)
[2018-08-15] MEDS: traMADol HCl 50 MG TAB PO PRN (03:49)
[2018-08-15] MEDS: Fish Oil 1,000 MG CAP PO SCH (09:08)
[2018-08-15] MEDS: Docusate 100 MG CAP PO SCH ×2 (09:08→21:51)
[2018-08-15] MEDS: Lisinopril 20 MG TAB PO SCH (09:08)
[2018-08-15] MEDS: Apixaban 5 MG TAB PO SCH ×2 (09:08→21:51)
[2018-08-15] MEDS: Potassium Chloride 20 MEQ TAB PO SCH (09:09)
[2018-08-15] MEDS: Spironolactone 25 MG TAB PO SCH ×2 (09:10→17:28)
[2018-08-15] MEDS: Furosemide 40 MG TAB PO SCH (09:10)
[2018-08-15] MEDS: Polyethylene Glycol 3350 17 GM Packet PO SCH (09:10)
[2018-08-15] MEDS: Carvedilol 25 MG TAB PO SCH ×2 (09:10→17:28)
[2018-08-15] MEDS: HumaLOG 300 UNITS/3 ML VIAL SC PRN ×3 (11:26→21:52)
[2018-08-15] MEDS: Nicotine 21 MG PATCH TOP PRN (11:26)
--- NOTE | 2018-08-15 16:33 | PDOC.PN ---
- Subjective Encounter Start Date: 08/15/18 Encounter Start Time: 11:15 Ms. Mata was seen today in follow-up of HF exacerbation. She does not have any complaints. She is breathing better. She denies any chest pain. She notes some pain in her left knee when she walks and also at night when she rests. - Objective Resuscitation Status - Order Detail: 08/09/18 23:07 Resuscitation Status Routine Resuscitation Status: FULL: Full Resuscitation MAR Reviewed: Yes Vital Signs & Weight: Vital Signs (12 hours) Temp Pulse Resp BP BP Pulse Ox 08/15/18 11:31 97.8 F 74 14 117/66 97 08/15/18 09:08 119/72 08/15/18 08:59 97.6 F 74 14 136/65 95 08/15/18 08:00 95 Weight Weight 361 lb 8 oz I&O: 08/14/18 08/15/18 08/16/18 06:59 06:59 06:59 Intake Total 1540 1620 Output Total 1040 Balance 500 1620 Result Diagrams: 08/14/18 04:31 08/14/18 04:31 Additional Labs: Accuchecks 08/15/18 08/15/18 08/14/18 11:05 05:24 20:25 POC Glucose 213 H 172 H 210 H 08/14/18 16:51 POC Glucose 165 H Phys Exam - Physical Examination HEENT: PERRLA Respiratory: no wheezing, no rales, no rhonchi, clear to auscultation bilateral Cardiovascular: RRR, no significant murmur, no rub Gastrointestinal: soft, non-tender, no distention, positive bowel sounds Musculoskeletal: no edema, pulses present + mild joint crepitus but no effusion or warmth Neurological: non-focal, normal sensation Dx/Plan (1) Acute on chronic systolic and diastolic heart failure, NYHA class 3 Code(s): I50.43 - ACUTE ON CHRONIC COMBINED SYSTOLIC AND DIASTOLIC HRT FAIL Status: Acute (2) Essential hypertension Code(s): I10 - ESSENTIAL (PRIMARY) HYPERTENSION Status: Chronic (3) Morbid obesity with BMI of 50.0-59.9, adult Code(s): E66.01 - MORBID (SEVERE) OBESITY DUE TO EXCESS CALORIES; Z68.43 - BODY MASS INDEX (BMI) 50-59.9, ADULT Status: Chronic (4) HTN (hypertension) Code(s): I10 - ESSENTIAL (PRIMARY) HYPERTENSION Status: Chronic Qualifiers: Hypertension type: essential hypertension Qualified Code(s): I10 - Essential (primary) hypertension (5) Sleep apnea in adult Code(s): G47.33 - OBSTRUCTIVE SLEEP APNEA (ADULT) (PEDIATRIC) Status: Chronic Comment: Patient has been diagnosed with PERLA, and has a CPAP machine but refuses to use it - Plan * Acute on chronic systolic heart failure- she has improved with diureses. * HTN- blood pressure is stable * PERLA- she refuses to use this. I explained at length the dangers of not using her CPAP, including worsening heart failure, fluid retention and even . she says she " does not want to be dependent on a machine, and she says she sleeps worse when she uses this". Will continue to try to encourage her to use one * DVT and PE- Eliquis has been re-started- will begin with the loading dose and adjust * Possible home soon.
[2018-08-15] MEDS: Pravastatin Sodium 20 MG TAB PO SCH (21:51)
[2018-08-16 03:26] LABS: Hemoglobin 12.7 g/dL (12.0-16.0); Platelet Count 339 thou/uL (130-400)
[2018-08-16 03:52] LABS: Calc. Creatinine Clearance 241 mL/min (70-130); Estimated GFR-MDRD Greater than 90
[2018-08-16 08:52] LABS: Potassium 4.9 mmol/L (3.5-5.1)
[2018-08-16] MEDS: Apixaban 5 MG TAB PO SCH (09:00)
[2018-08-16] MEDS: Potassium Chloride 20 MEQ TAB PO SCH (09:01)
[2018-08-16] MEDS: Furosemide 40 MG TAB PO SCH (09:01)
[2018-08-16] MEDS: Lisinopril 20 MG TAB PO SCH (09:01)
[2018-08-16] MEDS: Fish Oil 1,000 MG CAP PO SCH (09:01)
[2018-08-16] MEDS: Docusate 100 MG CAP PO SCH (09:02)
[2018-08-16] MEDS: Polyethylene Glycol 3350 17 GM Packet PO SCH (09:02)
[2018-08-16] MEDS: Carvedilol 25 MG TAB PO SCH (09:02)
[2018-08-16] MEDS: Spironolactone 25 MG TAB PO SCH (09:02)
--- NOTE | 2018-08-16 10:46 | PDOC.PN ---
- Subjective Encounter Start Date: 08/16/18 Encounter Start Time: 10:44 Ms. Mata was seen today in follow-up of CHF exacerbation. She does not have any complaints. - Objective Resuscitation Status - Order Detail: 08/09/18 23:07 Resuscitation Status Routine Resuscitation Status: FULL: Full Resuscitation MAR Reviewed: Yes Vital Signs & Weight: Vital Signs (12 hours) Temp Pulse Resp BP Pulse Ox 08/16/18 08:00 97.4 F L 80 17 113/68 95 08/16/18 03:09 98.5 F 81 17 95/47 L 95 Weight Weight 364 lb 9.6 oz I&O: 08/15/18 08/16/18 08/17/18 06:59 06:59 06:59 Intake Total 1620 1470 Output Total 4200 Balance 1620 -2730 Result Diagrams: 08/16/18 02:56 08/16/18 08:09 Additional Labs: Accuchecks 08/16/18 08/15/18 08/15/18 05:17 21:18 16:53 POC Glucose 200 H 275 H 273 H 08/15/18 11:05 POC Glucose 213 H Phys Exam - Physical Examination HEENT: PERRLA Respiratory: no wheezing, no rales, no rhonchi, clear to auscultation bilateral Cardiovascular: RRR, no significant murmur, no rub Gastrointestinal: soft, non-tender, no distention, positive bowel sounds Musculoskeletal: no edema Dx/Plan (1) Acute on chronic systolic and diastolic heart failure, NYHA class 3 Code(s): I50.43 - ACUTE ON CHRONIC COMBINED SYSTOLIC AND DIASTOLIC HRT FAIL Status: Acute (2) Essential hypertension Code(s): I10 - ESSENTIAL (PRIMARY) HYPERTENSION Status: Chronic (3) Morbid obesity with BMI of 50.0-59.9, adult Code(s): E66.01 - MORBID (SEVERE) OBESITY DUE TO EXCESS CALORIES; Z68.43 - BODY MASS INDEX (BMI) 50-59.9, ADULT Status: Chronic (4) HTN (hypertension) Code(s): I10 - ESSENTIAL (PRIMARY) HYPERTENSION Status: Chronic Qualifiers: Hypertension type: essential hypertension Qualified Code(s): I10 - Essential (primary) hypertension (5) Sleep apnea in adult Code(s): G47.33 - OBSTRUCTIVE SLEEP APNEA (ADULT) (PEDIATRIC) Status: Chronic Comment: Patient has been diagnosed with PERLA, and has a CPAP machine but refuses to use it - Plan * CHF exacerbation- better compensated- she is stable for discharge home * Arrangements are beiing made for her to receive her medications at the lowest cost available * Stable for discharge home.
[2018-08-16] MEDS: HumaLOG 300 UNITS/3 ML VIAL SC PRN (12:02)
[2018-08-16] MEDS: Nicotine 21 MG PATCH TOP PRN (12:02)
[2018-08-16 13:54] VITALS: BP 106/70; TEMP 97.2
--- NOTE | 2018-08-16 22:38 | DIS ---
DATE OF ADMISSION: 08/09/2018 DATE OF DISCHARGE: 08/16/2018 PRIMARY CARE PHYSICIAN: Dr. Shipman. DISCHARGE DISPOSITION: Home. PRIMARY DISCHARGE DIAGNOSES: 1. Acute on chronic systolic heart failure. 2. Hypertension. 3. Diabetes mellitus. 4. Morbid obesity. 5. History of pulmonary embolism and deep vein thrombosis. DISCHARGE MEDICATIONS: 1. Aldactone 25 mg twice a day. 2. Pravastatin 20 mg at bedtime. 3. Potassium chloride 20 mEq daily. 4. Pantoprazole 40 mg daily. 5. Metformin 1000 mg twice daily. 6. Lisinopril 40 mg daily. 7. Lasix 40 mg daily. 8. Colace 100 mg twice a day. 9. Aspirin 325 mg daily. 10. Eliquis 10 mg twice a day, then followed by 5 mg twice daily. 11. CoQ10 200 mg daily. 12. [place]-3 fish oil 240 mg daily. 13. Vitamin B12 of 1000 mcg daily. DIAGNOSTIC STUDIES: The patient had a cardiac catheterization during admission as well as a CT angiogram of the chest. The CTA demonstrated a linear defect in the right pulmonary artery. This could be a chronic thrombus. There is some patchy atelectasis. CODE STATUS: Full code. HOSPITAL COURSE: Ms. Mata is a pleasant 47-year-old female, who was admitted to the hospital after having difficulty breathing. She was found to be in acute on chronic systolic heart failure. She has a very severely low ejection fraction and an echo done back in 2016 demonstrated an ejection fraction of approximately 10% to 15%. Her medications were maximized and she was diuresed during the hospital stay. She was recommended to have a LifeVest; however, the patient does not have the funding for this. She was seen by Case Management in order to help arrange medications at the lowest cost possible. This was done and the patient is stable and able to be discharged home on 08/16/2018, for close outpatient followup. Job ID: [id number]
--- NOTE | 2018-08-18 06:16 | PQF ---
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 Clinical indicators are provided on the bottom of this form for your review Can you please specify whether NSTEMI type 2 is ruled in or ruled out during this encounter? NSTEMI type 2 [ X] Ruled in diagnosis [ ] Continue to treat [ ] Resolved [ ] Ruled out diagnosis [ ] Cannot rule out diagnosis [ ] Other diagnosis please specify [ ] Unable to determine In addition, please specify: Present on Admission (POA): [ X ] Yes [ ] No [ ] Unable to determine For continuity of documentation, please document condition throughout progress notes and discharge summary. Thank You. CLINICAL INDICATORS - SIGNS / SYMPTOMS / LABS H&P p3 08/09- 2. Elevated troponin likely secondary to the decompensated heart failure, representing a type 2 [id number] myocardial infarction secondary to demand ischemia Lab results 08/09- Trop I 0.080 Lab results 08/09- BNP 588.5 RISK FACTORS Hypertension- H and P pg.1 08/09 Morbid Obesity- H and P pg.1 08/09 Cardiomyopathy- H and P 08/09 pg.3 Diabetes mellitus- H and P 08/09 pg.3 Hyperlipidemia- H and P 08/09 pg.3 Acute in Chronic systolic heart failure-DS p1 08/16 pulmonary embolism status: chronic-Hospitalist PN p2 08/10 Acute respiratory failure with hypoxia-Hospitalist PN p2 08/10 TREATMENTS Cardiac Consult- Dr. 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 All Rights Reserved Farhad [email or web address] [not provided] MTDD
== END 2018-08-16 14:28 | disposition home or self-care (01) | DRG 280 ==
LOC: ERS 16:16 → 2NO 20:47
PROVIDERS: ADMIT Internal Medicine; ATTEND Internal Medicine
PROC: 4A023N7 Measurement of Cardiac Sampling and Pressure, Left Heart, Percutaneous Approach (ICD-10-PCS; principal; 2018-08-13)
PROC: B2111ZZ Fluoroscopy of Multiple Coronary Arteries using Low Osmolar Contrast (ICD-10-PCS; 2018-08-13)
PROC: B2151ZZ Fluoroscopy of Left Heart using Low Osmolar Contrast (ICD-10-PCS; 2018-08-13)
DX: I11.0 Hypertensive heart disease with heart failure (principal); J96.01 Acute respiratory failure with hypoxia; I21.A1 Myocardial infarction type 2; Z68.43 Body mass index [BMI] 50.0-59.9, adult; I27.82 Chronic pulmonary embolism; I50.43 Acute on chronic combined systolic (congestive) and diastolic (congestive) heart failure; I42.8 Other cardiomyopathies; E11.8 Type 2 diabetes mellitus with unspecified complications; I25.10 Atherosclerotic heart disease of native coronary artery without angina pectoris; E78.00 Pure hypercholesterolemia, unspecified; G47.33 Obstructive sleep apnea (adult) (pediatric); F32.9 Major depressive disorder, single episode, unspecified; E66.01 Morbid (severe) obesity due to excess calories; F17.220 Nicotine dependence, chewing tobacco, uncomplicated; Z88.5 Allergy status to narcotic agent; Z90.49 Acquired absence of other specified parts of digestive tract; Z88.8 Allergy status to other drugs, medicaments and biological substances; Z79.4 Long term (current) use of insulin; Z86.718 Personal history of other venous thrombosis and embolism; Z79.01 Long term (current) use of anticoagulants; Z91.19 Patient's noncompliance with other medical treatment and regimen; Z79.899 Other long term (current) drug therapy
CPT/HCPCS: 36415; 36416; 71045; 71275; 80048; 80053; 82550; 82553; 82565; 83735; 83880; 84132; 84484; 85014; 85018; 85025; 85027; 85049; 93005; 93458; 93798; 94760; 96372; 96374; 99152; 99153; C1769; J1644; J1650; J1940; J2250; J3010; Q9966; Q9967

== ENCOUNTER 2018-12-17 11:14 | Outpatient (CLI) | payer OTHER | END 2018-12-17 11:15 | disposition home or self-care (01) | LOC: DTY/OP 11:14 | PROVIDERS: ATTEND Surgery | DX: E66.01 Morbid (severe) obesity due to excess calories (principal) | CPT/HCPCS: 97802 ==

== ENCOUNTER 2019-07-05 06:43 | Outpatient (CLI) | payer OTHER ==
--- NOTE | 2019-07-05 12:50 | RAD ---
PA AND LATERAL CHEST: COMPARISON: 02/09/2016 study. FINDINGS: Heart size is enlarged. Mediastinal structures appear unremarkable. The lungs are clear of infiltra faustino. There are arthritic changes of the spine. IMPRESSION: Cardiomegaly. POS: TPC
[2019-07-05 13:34] LABS: #Eosinphils 0.1 thou/uL (0.0-0.7); #Lymphocytes 3.2 thou/uL (1.20-3.40); #Monocytes 0.5 thou/uL (0.11-0.59); #Neutrophils 8.2 thou/uL (1.40-6.50); %Basophils 0.1 % (0.0-1.0); %Eosinophils 1.1 % (0.0-10.0); %Lymphocytes 26.7 % (21.0-51.0); %Monocytes 4.4 % (0.0-10.0); %Neutrophils 67.6 % (42.0-75.0); Hemoglobin 14.2 g/dL (12.0-16.0); Mean Corpuscular HGB CONC 31.2 g/dL (32.0-36.0); Mean Corpuscular Hemoglobin 27.1 pg (27.0-31.0); Mean Corpuscular Volume 86.9 fL (78.0-98.0); Mean Platelet Volume 8.6 fL (7.4-10.4); Platelet Count 283 thou/uL (130-400); RBC Distribution Width 15.1 % (11.5-14.5); Red Blood Cell (RBC) Count 5.24 mill/uL (4.20-5.40); White Blood Cell (WBC) Count 12.1 thou/uL (4.8-10.8)
[2019-07-05 13:41] LABS: Hemoglobin A1c 8.1 % (4.0-6.0)
[2019-07-05 14:00] LABS: ALT (SGPT) 22 U/L (8-55); AST (SGOT) 18 U/L (5-34); Albumin 3.6 g/dL (3.5-5.0); Alkaline Phosphatase 88 U/L (40-110); Anion Gap 12 mmol/L (10-20); BUN (Urea Nitrogen) 14 mg/dL (7.0-18.7); Bilirubin, Total 0.2 mg/dL (0.2-1.2); Calc. Creatinine Clearance 0 mL/min (70-130); Calcium 9.2 mg/dL (7.8-10.44); Carbon Dioxide 24 mmol/L (22-29); Chloride 106 mmol/L (98-107); Estimated GFR-MDRD Greater than 90; Globulin 3.8 g/dL (2.4-3.5); Glucose 184 mg/dL (70-105); Potassium 4.5 mmol/L (3.5-5.1); Protein, Total 7.4 g/dL (6.0-8.3); Sodium 137 mmol/L (136-145)
[2019-07-05 14:03] LABS: BHCG - Serum Negative (NEGATIVE); Pregs Control Background? CLEAR/WHITE (CLR/WHITE); Pregs Control Bar Appear? YES (CONTROL BAR)
--- NOTE | 2019-07-05 22:58 | EKG ---
Test Reason : Blood Pressure : / mmHG Vent. Rate : 083 BPM Atrial Rate : 083 BPM P-R Int : 198 ms QRS Dur : 150 ms QT Int : 386 ms P-R-T Axes : 059 137 006 degrees QTc Int : 453 ms Normal sinus rhythm Non-specific intra-ventricular conduction block Abnormal ECG When compared with ECG of 09-AUG-2018 16:26, Non-specific intra-ventricular conduction block has replaced Left bundle branch block Confirmed by MARIE GONZALEZ, SAziza ([id number]) on 07/05/2019 10:58:20 PM Referred By: JESSIE Confirmed By:DR. Marisol SALAZAR MD
== END 2019-07-05 06:44 | disposition home or self-care (01) ==
LOC: LABBT 06:43
PROVIDERS: ATTEND Surgery
DX: Z01.818 Encounter for other preprocedural examination (principal); E66.01 Morbid (severe) obesity due to excess calories
CPT/HCPCS: 71046; 80053; 83036; 84703; 85025; 93005; 93010

== ENCOUNTER 2019-07-05 11:00 | Inpatient (IN) | payer OTHER ==
[2019-07-05 11:26] VITALS: BMI 60.5
[2019-09-20] MEDS ORDERED: Lidocaine 1% w/Epinephrine 1:100K 20 ML VIAL ONE (06:50)
[2019-09-20] MEDS ORDERED: Bupivacaine 0.25% HCL 30 ML VIAL ONE (06:50)
[2019-09-20] MEDS ORDERED: Fentanyl 100 MCG/2 ML VIAL ONE ×3 (07:20→11:11)
[2019-09-20] MEDS ORDERED: Phenylephrine 10 MG/ML VIAL ONE (07:21)
[2019-09-20] MEDS ORDERED: Ketamine 50 MG/ML (10ML VIAL) ONE (07:30)
[2019-09-20] MEDS ORDERED: SUGAMMADEX SODIUM 500 MG/5 ML VIAL ONE (09:53)
[2019-09-20] MEDS ORDERED: diphenhydrAMINE 50 MG/ML VIAL IM PRN (11:11)
[2019-09-20] MEDS ORDERED: Zolpidem Tartrate 5 MG TAB PO PRN (11:11)
[2019-09-20] MEDS ORDERED: diphenhydrAMINE 50 MG/ML VIAL IVP PRN ×2 (11:11→12:09)
[2019-09-20] MEDS ORDERED: fentaNYL Citrate/PF 2,000 MCG in Sodium Chloride 0.9% 60 ML IV PRN (11:11)
[2019-09-20] MEDS ORDERED: Ondansetron PF 4 MG/2 ML Vial IVP PRN ×2 (11:11→12:09)
[2019-09-20] MEDS ORDERED: Naloxone HCl 0.4 mg/ml Vial IV PRN (11:11)
[2019-09-20] MEDS ORDERED: diphenhydrAMINE 25 MG CAP PO PRN (11:11)
[2019-09-20] MEDS ORDERED: Ketorolac Tromethamine 30 MG/ML VIAL IVP PRN (11:11)
[2019-09-20] MEDS ORDERED: Communication Order-Pharmacy FS SCH (11:15)
[2019-09-20] MEDS ORDERED: Promethazine HCl 25 MG/ML VIAL IM PRN (12:09)
[2019-09-20] MEDS ORDERED: hydrALAZINE 20 MG/ML VIAL SLOW IVP PRN (12:09)
[2019-09-20] MEDS ORDERED: Non-Formulary Item 1 EACH (Albuterol Sulfate [Proair Hfa] 1 PUFF) INH PRN (12:09)
[2019-09-20] MEDS ORDERED: Dextrose 50% Abboject 50 ML SYRINGE SLOW IVP PRN ×2 (12:09)
[2019-09-20] MEDS ORDERED: Hydrocodone-Acetamin 15 ML UDCUP PO PRN (12:09)
[2019-09-20] MEDS ORDERED: Dextrose 5% in Water 1,000 ML IV PRN (12:09)
[2019-09-20] MEDS ORDERED: PROPOFOL 200 MG/20 ML VIAL ONE (12:30)
[2019-09-20] MEDS ORDERED: Rocuronium Bromide 10 MG/ML (10ML VIAL) ONE (12:30)
[2019-09-20] MEDS ORDERED: PHENYLEPHRINE-NS 100 MCG/ML 10 ML SYRINGE ONE (12:30)
[2019-09-20] MEDS ORDERED: Lidocaine 1% PF 5 ML VIAL ONE (12:30)
[2019-09-20] MEDS ORDERED: Succinylcholine Chloride 20 MG/ML 10 ml SYRINGE FS ONE (12:30)
[2019-09-20] MEDS ORDERED: Ondansetron PF 4 MG/2 ML Vial ONE (12:30)
[2019-09-20] MEDS ORDERED: Dexamethasone 20 MG/5 ML VIAL ONE (12:30)
[2019-09-20] MEDS: Sodium Chloride 0.9% 1,000 ML IV SCH ×2 (13:43→19:45)
--- NOTE | 2019-09-20 14:10 | OP ---
DATE OF PROCEDURE: 09/20/2019 PREOPERATIVE DIAGNOSES: 1. Morbid obesity with body mass index of 60. 2. Diabetes mellitus. 3. Coronary artery disease. 4. Chronic congestive heart failure. 5. Hypertension. POSTOPERATIVE DIAGNOSES: 1. Morbid obesity with body mass index of 60. 2. Diabetes mellitus. 3. Coronary artery disease. 4. Chronic congestive heart failure. 5. Hypertension. 6. Hiatal Hernia Paraesophageal PROCEDURES PERFORMED: 1. Laparoscopic sleeve gastrectomy with GORE staple line reinforcement and 38- Lebanese bougie. 2. Laparoscopic Paraesophageal Hiatal Hernia repair without mesh or fundoplication 3. Esophagogastroduodenoscopy. ANESTHESIA: General. ESTIMATED BLOOD LOSS: 100 mL. COMPLICATIONS: None. FINDINGS: Normal postoperative EGD. INDICATIONS: The patient is a 48-year-old female with a history of CHF; chronic AFib, on Eliquis; diabetes mellitus, who presents for weight loss surgery. She has undergone pulmonary and cardiac clearance. She has undergone our preoperative education class. She understands risks, benefits, alternatives to the surgery, specifically including bleeding, infection, need for further surgery, staple line leakage, even . She did give consent. DESCRIPTION OF PROCEDURE: The patient was taken to the operating room and laid supine on the operating room table. After general anesthetic was obtained, an OG tube was used to decompress the stomach. Arms and legs were double strapped to bariatric table. The abdomen was prepped and draped in a sterile fashion. A left subcostal 5-mm Optiview trocar placed in the usual fashion. High-flow pneumoperitoneum was obtained. Left and right abdominal 12-mm ports as well as a right subcostal 5-mm port were placed under direct visualization. A 5-mm incision was made at the xiphoid and Danielito was used to raise the liver off the GE junction. Short gastrics were taken down from mid body of the stomach to the left fili of diaphragm. Left fili, posterior fundus, and angle of His were completely dissected. The short gastrics were taken down to a distance of 6 cm proximal to the pylorus. There was a hiatal hernia. A circumferential dissection of the esophagus was performed and the GE junction brought back into the abdominal cavity. The posterior crura are closed using 1 Ethibond suture with a Tie-Knot system. Multiple loads of an echelon stapling device were used to form the sleeve. A bougie had been brought in 38-Lebanese and left in the antrum of the stomach. Multiple loads were fired up along the first fire was fired up at the distance of 6 cm proximal to the pylorus, angled up towards the incisura. Multiple loads were then fired up along the bougie. Stomach was completely transected at the angle of His. Stomach was removed from the left abdominal incision. This fascial defect was closed using GraNee needle and 0 Vicryl tie. EGD scope was passed from the esophagus, stomach to the level of the duodenum without obstruction. No stricture. The EGD scope was used to decompress the stomach and was pulled and removed. The Danielito retractor was removed under direct visualization without bleeding. All port sites were removed without bleeding. Pneumoperitoneum was let down. Additional Maxon used to close the fascial defect at the larger incision where the stomach was removed. This incision was irrigated using sterile solution. All incisions were irrigated and closed using 4-0 Monocryl and Dermabond. The patient was sent to Recovery in stable condition. All instrument counts, needle counts, and lap counts were correct. Job ID: [id number] [facility]
[2019-09-20] MEDS: HumaLOG 300 UNITS/3 ML VIAL SC PRN (18:45)
[2019-09-20] MEDS: Enoxaparin Sodium 40 MG/0.4 ML SYRINGE SC SCH (19:45)
[2019-09-21] MEDS: Promethazine HCl 25 MG/ML VIAL IM PRN ×2 (02:09→05:58)
[2019-09-21 05:10] LABS: #Lymphocytes 2.3 thou/uL (1.20-3.40); #Monocytes 0.8 thou/uL (0.11-0.59); #Neutrophils 15.4 thou/uL (1.40-6.50); %Basophils 0.2 % (0.0-1.0); %Eosinophils 0.1 % (0.0-10.0); %Lymphocytes 12.5 % (21.0-51.0); %Monocytes 4.2 % (0.0-10.0); %Neutrophils 83.1 % (42.0-75.0); Hemoglobin 14.1 g/dL (12.0-16.0); Mean Corpuscular HGB CONC 31.2 g/dL (32.0-36.0); Mean Corpuscular Hemoglobin 27.5 pg (27.0-31.0); Mean Corpuscular Volume 88.2 fL (78.0-98.0); Mean Platelet Volume 8.1 fL (7.4-10.4); Platelet Count 322 thou/uL (130-400); RBC Distribution Width 13.8 % (11.5-14.5); Red Blood Cell (RBC) Count 5.12 mill/uL (4.20-5.40); White Blood Cell (WBC) Count 18.6 thou/uL (4.8-10.8)
[2019-09-21 05:30] LABS: Anion Gap 12 mmol/L (10-20); BUN (Urea Nitrogen) 12 mg/dL (7.0-18.7); Calc. Creatinine Clearance 232 mL/min (70-130); Calcium 9.2 mg/dL (7.8-10.44); Carbon Dioxide 27 mmol/L (22-29); Chloride 99 mmol/L (98-107); Estimated GFR-MDRD Greater than 90; Glucose 186 mg/dL (70-105); Potassium 4.3 mmol/L (3.5-5.1); Sodium 134 mmol/L (136-145)
[2019-09-21] MEDS: HumaLOG 300 UNITS/3 ML VIAL SC PRN (05:58)
[2019-09-21] MEDS ORDERED: Scopolamine 1.5 mg/72 hour Patch TOP SCH (07:00)
[2019-09-21] MEDS ORDERED: Fentanyl 100 MCG/2 ML VIAL SLOW IVP PRN (08:58)
--- NOTE | 2019-09-21 09:32 | PRG ---
DATE OF SERVICE: 09/21/2019 SUBJECTIVE: Ms. Mata is postop day one lap gastric sleeve. She has no significant complaints today. She notes a little more shortness of breath than normal. She was able to sleep last night. She is complaining of nausea and belching this morning, but tolerating some of the clear liquid diet. She has ambulated once. OBJECTIVE: VITAL SIGNS: Blood pressure is 139/80; pulse 80; respirations 18; her O2 saturation was 90% on room air, it was 96% on 1-1/2 L. ABDOMEN: Soft and appropriately tender. LABORATORY DATA: White blood cell count is 18, hemoglobin 14, platelet count is 322. Sodium 134, potassium 4.3, creatinine 0.84, glucose 186. ASSESSMENT: 1. Postop one laparoscopic gastric sleeve. 2. Congestive heart failure, chronic. 3. History of atrial fibrillation, on Eliquis normally. PLAN: Restart her Eliquis tomorrow. She had IVC filter placed by Dr. Mcbride. Restart her home medications including carvedilol today. She takes 40 of Lasix twice a day at home. We will give her 20 twice a day today. Discontinue RN DISEASE MANAGEMENT, start oral pain control. Encouraged her to ambulate more today, potentially home tomorrow. Job ID: [id number]
[2019-09-21] MEDS: Spironolactone 25 MG TAB PO SCH (10:41)
[2019-09-21] MEDS: Carvedilol 25 MG TAB PO SCH ×2 (10:41→20:16)
[2019-09-21] MEDS: Pantoprazole 40 MG VIAL IVP SCH (10:41)
[2019-09-21] MEDS: Sacubitril 49 MG/Valsartan 51 MG TABLET PO SCH ×2 (10:41→20:17)
[2019-09-21] MEDS: Sodium Chloride 0.9% 1,000 ML IV SCH (12:04)
[2019-09-21] MEDS: Hydrocodone-Acetamin 15 ML UDCUP PO PRN ×2 (12:57→20:15)
[2019-09-21] MEDS: Furosemide 20 MG TAB PO SCH ×2 (12:58→17:58)
[2019-09-21] MEDS ORDERED: Furosemide 20 MG TAB PO SCH (17:45)
[2019-09-21] MEDS: Enoxaparin Sodium 40 MG/0.4 ML SYRINGE SC SCH (20:16)
[2019-09-22] MEDS: Hydrocodone-Acetamin 15 ML UDCUP PO PRN ×2 (03:33→09:57)
[2019-09-22] MEDS: Sodium Chloride 0.9% 1,000 ML IV SCH (05:17)
[2019-09-22 07:37] VITALS: BP 139/85; TEMP 98.5
[2019-09-22] MEDS ORDERED: Potassium Chloride 20 MEQ TAB PO SCH (09:00)
[2019-09-22] MEDS: Spironolactone 25 MG TAB PO SCH (09:58)
[2019-09-22] MEDS: Furosemide 20 MG TAB PO SCH (09:58)
[2019-09-22] MEDS: Carvedilol 25 MG TAB PO SCH (09:58)
[2019-09-22] MEDS: Pantoprazole 40 MG VIAL IVP SCH (09:58)
[2019-09-22] MEDS: Sacubitril 49 MG/Valsartan 51 MG TABLET PO SCH (10:10)
== END 2019-09-22 11:00 | disposition home or self-care (01) | DRG 620 ==
LOC: SURG A 09-20 05:45
PROVIDERS: ADMIT Surgery; ATTEND Surgery
PROC: 0DB64Z3 Excision of Stomach, Percutaneous Endoscopic Approach, Vertical (ICD-10-PCS; principal; 2019-09-20)
PROC: 0BQT4ZZ Repair Diaphragm, Percutaneous Endoscopic Approach (ICD-10-PCS; 2019-09-20)
PROC: 0DJ08ZZ Inspection of Upper Intestinal Tract, Via Natural or Artificial Opening Endoscopic (ICD-10-PCS; 2019-09-20)
DX: E66.01 Morbid (severe) obesity due to excess calories (principal); I48.20 Chronic atrial fibrillation, unspecified; K44.9 Diaphragmatic hernia without obstruction or gangrene; I25.10 Atherosclerotic heart disease of native coronary artery without angina pectoris; I11.0 Hypertensive heart disease with heart failure; I50.9 Heart failure, unspecified; Z68.44 Body mass index [BMI] 60.0-69.9, adult; Z79.01 Long term (current) use of anticoagulants; Z88.5 Allergy status to narcotic agent
CPT/HCPCS: 36415; 36416; 80048; 85025; 88307; 88312; C9113; J0690; J1100; J1650; J2001; J2370; J2405; J2550; J2704; J3010; S0020

== ENCOUNTER 2019-09-15 06:53 | Outpatient (CLI) | payer OTHER ==
[2019-09-15 11:50] LABS: #Basophils 0.1 thou/uL (0.0-0.2); #Eosinphils 0.2 thou/uL (0.0-0.7); #Lymphocytes 3.5 thou/uL (1.20-3.40); #Monocytes 0.6 thou/uL (0.11-0.59); #Neutrophils 9.1 thou/uL (1.40-6.50); %Basophils 0.6 % (0.0-1.0); %Eosinophils 1.4 % (0.0-10.0); %Monocytes 4.1 % (0.0-10.0); %Neutrophils 67.9 % (42.0-75.0); Hemoglobin 14.6 g/dL (12.0-16.0); Mean Corpuscular HGB CONC 30.5 g/dL (32.0-36.0); Mean Corpuscular Hemoglobin 26.9 pg (27.0-31.0); Mean Corpuscular Volume 88.3 fL (78.0-98.0); Mean Platelet Volume 8.2 fL (7.4-10.4); Platelet Count 301 thou/uL (130-400); Red Blood Cell (RBC) Count 5.43 mill/uL (4.20-5.40); White Blood Cell (WBC) Count 13.5 thou/uL (4.8-10.8)
[2019-09-15 12:05] LABS: Hemoglobin A1c 9.1 % (4.0-6.0)
[2019-09-15 12:27] LABS: ALT (SGPT) 20 U/L (8-55); AST (SGOT) 17 U/L (5-34); Albumin 3.6 g/dL (3.5-5.0); Alkaline Phosphatase 107 U/L (40-110); Anion Gap 11 mmol/L (10-20); BUN (Urea Nitrogen) 13 mg/dL (7.0-18.7); Bilirubin, Total 0.2 mg/dL (0.2-1.2); Calc. Creatinine Clearance 0 mL/min (70-130); Calcium 9.1 mg/dL (7.8-10.44); Carbon Dioxide 27 mmol/L (22-29); Chloride 102 mmol/L (98-107); Estimated GFR-MDRD Greater than 90; Glucose 163 mg/dL (70-105); Potassium 4.2 mmol/L (3.5-5.1); Protein, Total 7.6 g/dL (6.0-8.3); Sodium 136 mmol/L (136-145)
[2019-09-15 17:38] LABS: SARS-CoV-2 MS2 Positive; SARS-CoV-2 N Gene Negative; SARS-CoV-2 S Gene Negative; SARS-CoV-2 orf1ab Negative
== END 2019-09-15 06:54 | disposition home or self-care (01) ==
LOC: LABBT 06:53
PROVIDERS: ATTEND Thoracic Surgery (Cardiothoracic Vascular Surgery)
DX: Z01.812 Encounter for preprocedural laboratory examination (principal); Z11.59 Encounter for screening for other viral diseases; Z86.711 Personal history of pulmonary embolism
CPT/HCPCS: 80053; 83036; 85025; 87635; U0003

== ENCOUNTER 2019-09-16 05:42 | Day surgery (SDC) | payer OTHER ==
[2019-09-15 10:37] VITALS: BMI 60.9
[2019-09-16] MEDS ORDERED: Midazolam HCl 2 mg/2 ml Vial ONE (06:59)
[2019-09-16] MEDS ORDERED: Fentanyl 100 MCG/2 ML VIAL ONE (06:59)
[2019-09-16] MEDS ORDERED: Lidocaine 1% (PF) 30 ML VIAL ONE (07:03)
--- NOTE | 2019-09-16 07:46 | OP ---
DATE OF PROCEDURE: 09/16/2019 PREOPERATIVE DIAGNOSIS: History of pulmonary embolism with need for surgery and prophylactic inferior vena cava filter to come off anticoagulation. POSTOPERATIVE DIAGNOSIS: History of pulmonary embolism with need for surgery and prophylactic inferior vena cava filter to come off anticoagulation. PROCEDURES PERFORMED: 1. Ultrasound-guided right jugular vein access. 2. Inferior vena cavogram. 3. Jugular approach Cook Celect inferior vena cava filter placed with the tip cephalad. ANESTHESIA: 1% lidocaine for local with 2 mg of Versed and 50 mcg of fentanyl IV. TOTAL CONTRAST: 8 mL. TOTAL FLUORO TIME: 1.3 minutes. DESCRIPTION OF PROCEDURE: After consent was obtained, the patient was brought to the cath lab radiological technologist, placed in supine position on cath lab radiological technologist table. Appropriate central line and monitors were placed. Right neck was prepped and draped in usual sterile fashion. Ultrasound guidance was used to anesthetize the right neck. Ultrasound guidance was used to access the right jugular vein. The Bentson guidewire and cavogram sheath were then passed down to the level L3. Hand-injected venacavogram was performed. Vena cava was less than 3 cm in diameter. The renal veins were localized. The IVC filter was then passed down through the sheath and deployed with its tip just below the renal veins. Sheath was removed and manual pressure held for hemostasis. The patient tolerated the procedure well, transferred to the recovery room at home later today. Job ID: [id number] [facility]
[2019-09-16] MEDS ORDERED: Iopamidol 370 76% 50 ML VIAL FS ONE (10:48)
== END 2019-09-16 09:00 | disposition home or self-care (01) ==
LOC: SDC 05:42
PROVIDERS: ATTEND Thoracic Surgery (Cardiothoracic Vascular Surgery)
PROC: 021 Heart and Great Vessels, Bypass (ICD-10-PCS; principal; 2019-09-16)
DX: I26.99 Other pulmonary embolism without acute cor pulmonale (principal); Z79.82 Long term (current) use of aspirin; Z79.899 Other long term (current) drug therapy; Z88.5 Allergy status to narcotic agent; Z88.6 Allergy status to analgesic agent
CPT/HCPCS: 37191; 76942; 99152; C1769; J1644; J2001; J2250; J3010; Q9967

== ENCOUNTER 2020-03-12 15:15 | Outpatient (CLI) | payer OTHER ==
--- NOTE | 2020-03-14 15:27 | MMO ---
Bilateral MAMMO Bilat Screen [facility]. CLINICAL HISTORY: Patient is 49 years old and is seen for screening. The patient has no family history of breast cancer. The patient has no personal history of cancer. VIEWS: The views performed were: bilateral craniocaudal and bilateral mediolateral oblique. FILMS COMPARED: The present examination has been compared to a prior imaging study performed at [facility] on 04/03/2017. This study has been interpreted with the assistance of computer-aided detection. MAMMOGRAM FINDINGS: The breasts are almost entirely fat. There are no suspicious masses, suspicious calcifications, or new areas of architectural distortion. IMPRESSION: THERE IS NO MAMMOGRAPHIC EVIDENCE OF MALIGNANCY. A ROUTINE FOLLOW-UP MAMMOGRAM IN 1 YEAR IS RECOMMENDED. ACR BI-RADS Category 1 - Negative MAMMOGRAPHY NOTE: 1. A negative mammogram report should not delay a biopsy if a dominant of clinically suspicious mass is present. 2. Approximately 10% to 15% of breast cancers are not detected by mammography. 3. Adenosis and dense breasts may obscure an underlying neoplasm. Reported by: GIBRAN SANDOVAL MD Electonically Signed: [id number]
== END 2020-03-12 15:16 | disposition home or self-care (01) ==
LOC: BICMAMMO 15:15
PROVIDERS: ATTEND Family Medicine
DX: Z12.31 Encounter for screening mammogram for malignant neoplasm of breast (principal)
CPT/HCPCS: 77067

== ENCOUNTER 2020-08-23 16:39 | Outpatient (CLI) | payer OTHER, SELFPAY ==
[2020-08-23 17:32] LABS: #Monocytes 0.5 10x3/uL (0.0-1.1); #Neutrophils 7.6 10x3/uL (1.5-8.4); %Basophils 0.3 % (0.0-2.0); %Eosinophils 0.1 % (0.0-6.0); %Lymphocytes 29.5 % (18.0-47.0); %Monocytes 4.6 % (0.0-10.0); %Neutrophils 64.9 % (40.0-75.0); Hemoglobin 12.3 g/dL (12.0-15.5); Mean Corpuscular HGB CONC 31.5 g/dL (32.0-36.0); Mean Corpuscular Hemoglobin 29.3 pg (27.0-33.0); Mean Corpuscular Volume 93.1 fl (81.6-98.3); Mean Platelet Volume 10.1 fl (7.4-10.4); Platelet Count 294 10x3/uL (150-450); RBC Distribution Width 13.6 % (11.5-14.5); White Blood Cell (WBC) Count 11.6 10x3/uL (3.5-10.5)
[2020-08-23 17:35] LABS: Anion Gap 14 mmol/L (10-20); BUN (Urea Nitrogen) 12 mg/dL (7.0-18.7); Calc. Creatinine Clearance 0 mL/min (70-130); Carbon Dioxide 26 mmol/L (22-29); Chloride 106 mmol/L (98-107); Glucose 101 mg/dL (70-105); Potassium 3.7 mmol/L (3.5-5.1); Sodium 142 mmol/L (136-145)
[2020-08-24 01:53] LABS: SARS-CoV-2 PCR by NAA Not Detected (NotDetected)
== END 2020-08-23 16:40 | disposition home or self-care (01) ==
LOC: LABBT 16:39
PROVIDERS: ATTEND Surgery
DX: Z01.818 Encounter for other preprocedural examination (principal); Z20.822 Contact with and (suspected) exposure to COVID-19; K43.2 Incisional hernia without obstruction or gangrene
CPT/HCPCS: 80048; 85025; 87635; 93005; 93010; U0003; U0005

== ENCOUNTER 2020-08-28 06:06 | Day surgery (SDC) | payer OTHER ==
[2020-08-27 12:18] VITALS: BMI 42.0
[2020-08-28] MEDS ORDERED: Fentanyl 250 MCG/5 ML VIAL ONE (06:27)
[2020-08-28] MEDS ORDERED: SUGAMMADEX SODIUM 200 MG/2 ML VIAL ONE ×2 (06:27→07:10)
[2020-08-28] MEDS ORDERED: Lidocaine 1% w/Epinephrine 1:100K 20 ML VIAL ONE (06:40)
[2020-08-28] MEDS ORDERED: Bupivacaine 0.25% HCL 30 ML VIAL ONE (06:40)
[2020-08-28] MEDS ORDERED: Phenylephrine 10 MG/ML VIAL ONE (07:24)
[2020-08-28] MEDS ORDERED: Dexamethasone 20 MG/5 ML VIAL ONE (07:33)
[2020-08-28] MEDS ORDERED: Rocuronium Bromide 10 MG/ML (10ML VIAL) ONE (07:33)
[2020-08-28] MEDS ORDERED: Ondansetron PF 4 MG/2 ML Vial ONE ×2 (07:33→09:09)
[2020-08-28] MEDS ORDERED: PROPOFOL 200 MG/20 ML VIAL ONE (07:33)
[2020-08-28] MEDS ORDERED: PHENYLEPHRINE-NS 100 MCG/ML 10 ML SYRINGE ONE (07:33)
[2020-08-28] MEDS ORDERED: Lidocaine 1% PF 5 ML VIAL ONE (07:33)
[2020-08-28] MEDS ORDERED: Glycopyrrolate 0.2 MG/ML 5 ML SYRINGE ONE (07:33)
[2020-08-28] MEDS ORDERED: ePHEDrine Sulfate 50 MG/10 ML VIAL ONE (07:33)
[2020-08-28] MEDS ORDERED: Fentanyl 100 MCG/2 ML VIAL ONE ×3 (08:57→09:41)
[2020-08-28] MEDS ORDERED: HYDROmorphone 0.5 MG/0.5 ML SYRINGE ONE (09:45)
[2020-08-28] MEDS ORDERED: HYDROcodone/Acetaminophen 5/325 mg Tablet ONE (11:53)
== END 2020-08-28 13:19 | disposition home or self-care (01) ==
LOC: SDC 06:06
PROVIDERS: ATTEND Surgery
PROC: 0WUF4JZ Supplement Abdominal Wall with Synthetic Substitute, Percutaneous Endoscopic Approach (ICD-10-PCS; principal; 2020-08-28)
DX: K43.2 Incisional hernia without obstruction or gangrene (principal); E11.9 Type 2 diabetes mellitus without complications; E78.5 Hyperlipidemia, unspecified; G47.30 Sleep apnea, unspecified; I11.0 Hypertensive heart disease with heart failure; I50.9 Heart failure, unspecified; F16.11 Hallucinogen abuse, in remission; F17.200 Nicotine dependence, unspecified, uncomplicated; E66.01 Morbid (severe) obesity due to excess calories; Z68.41 Body mass index [BMI] 40.0-44.9, adult; Z79.01 Long term (current) use of anticoagulants; Z79.82 Long term (current) use of aspirin; Z79.84 Long term (current) use of oral hypoglycemic drugs; Z79.899 Other long term (current) drug therapy; Z88.5 Allergy status to narcotic agent; Z88.6 Allergy status to analgesic agent
CPT/HCPCS: C1781; J0690; J1100; J1170; J2370; J2405; J2704; J3010; S0020

== ENCOUNTER 2022-03-22 05:19 | Emergency (ER) | payer OTHER | END 2022-03-22 06:24 | disposition left against medical advice (07) | LOC: ERS 05:19 | DX: Z53.21 Procedure and treatment not carried out due to patient leaving prior to being seen by health care provider (principal) ==

== ENCOUNTER 2022-06-09 15:47 | Outpatient (CLI) | payer OTHER | END 2022-06-09 15:48 | disposition home or self-care (01) | LOC: BICMAMMO 15:47 | PROVIDERS: ATTEND Family Medicine | DX: Z12.31 Encounter for screening mammogram for malignant neoplasm of breast (principal); N64.89 Other specified disorders of breast | CPT/HCPCS: 77067 ==

== ENCOUNTER 2024-05-26 08:03 | Day surgery (SDC) | payer OTHER ==
[2024-05-25 13:41] VITALS: BMI 49.9
[2024-05-26] MEDS ORDERED: PROPOFOL 40 ML ONE (10:12)
[2024-05-26] MEDS ORDERED: Lidocaine 2% PF 5 ML VIAL ONE (10:12)
[2024-05-26] MEDS ORDERED: Acetaminophen 500 MG TAB ONE (11:05)
== END 2024-05-26 12:15 | disposition home or self-care (01) ==
LOC: SDC 08:03
PROVIDERS: ATTEND Internal Medicine Gastroenterology
PROC: 0DB58ZX Excision of Esophagus, Via Natural or Artificial Opening Endoscopic, Diagnostic (ICD-10-PCS; principal; 2024-05-26)
DX: K21.00 Gastro-esophageal reflux disease with esophagitis, without bleeding (principal); K31.9 Disease of stomach and duodenum, unspecified; K44.9 Diaphragmatic hernia without obstruction or gangrene; I50.22 Chronic systolic (congestive) heart failure; E11.9 Type 2 diabetes mellitus without complications; E78.2 Mixed hyperlipidemia; G47.33 Obstructive sleep apnea (adult) (pediatric); E66.01 Morbid (severe) obesity due to excess calories; I42.8 Other cardiomyopathies; Z79.82 Long term (current) use of aspirin; Z79.01 Long term (current) use of anticoagulants; Z98.84 Bariatric surgery status; Z79.899 Other long term (current) drug therapy; Z79.84 Long term (current) use of oral hypoglycemic drugs; F17.210 Nicotine dependence, cigarettes, uncomplicated; Z68.42 Body mass index [BMI] 45.0-49.9, adult
CPT/HCPCS: 88305; J2704